=== PATIENT | female | born 1930 | race Caucasian/White ===

== ENCOUNTER 2018-09-25 16:33 | Inpatient (IN) | payer MEDICARE, BC ==
[~2018-09-25] VITALS: Ht 154.9 cm; Wt 90.7 kg
[2018-09-25] MEDS ORDERED: ARICEPT10 MG PO (16:40)
[2018-09-25] MEDS ORDERED: ASPIRIN 32325 MG/TAB PO (16:41)
[2018-09-25] MEDS ORDERED: LASIX 40MG TABL40 MG PO (16:41)
[2018-09-25] MEDS ORDERED: MIRALAX PA17 GM/Dose PO (16:42)
[2018-09-25] MEDS ORDERED: ZESTRIL 10MG10 MG PO (16:42)
[2018-09-25] MEDS ORDERED: MULTI VITAMINS1 TAB PO (16:43)
[2018-09-25] MEDS ORDERED: K-TAB20 PO (16:45)
[2018-09-25] MEDS ORDERED: ZOLOFT 50MG50 MG PO (16:46)
[2018-09-25 16:47] VITALS: BP 130/55; PULSE 81; TEMP 98.3
[2018-09-25] MEDS ORDERED: ZANTAC 150MG T150 MG PO (16:47)
[2018-09-25] MEDS ORDERED: TYLENOL 325MG325 MG PO (16:47)
[2018-09-25] MEDS ORDERED: ZYPREXA 5MG5 MG PO (16:49)
[2018-09-25] MEDS ORDERED: NAMENDA 10MG TA10 MG PO (16:49)
[2018-09-25] MEDS ORDERED: DULCOLAX STOOL100 MG PO (16:50)
[2018-09-25] MEDS ORDERED: SINEMET-25/251 UDTAB PO (16:51)
[2018-09-25] MEDS ORDERED: GENTLE LAXATIVE5 MG PO (16:53)
[2018-09-25] MEDS ORDERED: MILK OF MA400 MG/52 PO (16:53)
[2018-09-25] MEDS ORDERED: NORCO2.5 PO (16:54)
[2018-09-25] MEDS ORDERED: ZYPREXA2.5 MG PO (16:56)
--- NOTE | 2018-09-25 18:08 | NUR ---
Patient to room 345 report from [facility]. Ems brought patient to 345, she transfered to bed fairly well with slideboard. Patient family at bedside. Hospitalist rounded. Ku in ortho made aware of consult & patient arrival to the floor. Ivf started to L.hand per orders & morphine IV for pain, patient unable to rate her pain. Patient has underlying dementia-not able to answer questions. Her facial grimacing was indicative of pain and her family reported she appeared in pain. Her family assisted with inital assement questions, patient unable to answer. She had a farrell to DD started in rosser. Rue in sling that was also placed at rosser. Brusing noted to her arm. Scds ble. Patient refused ice to hip Rle elevated. Will report off to night nurse
[2018-09-25 18:17] LABS: MUCOUS Present /lpf; PH 5 (5-8); URINE APPEARANCE Cloudy; URINE BACTERIA Occasional /hpf; URINE BILIRUBIN Negative (NEGATIVE); URINE BLOOD 2+ (NEGATIVE); URINE COLOR Yellow; URINE GLUCOSE Negative (NEGATIVE); URINE KETONE Negative (NEGATIVE); URINE LEUKOCYTE ESTERASE 3+ (NEGATIVE); URINE NITRATE Negative (NEGATIVE); URINE PROTEIN(semi-quant) 1+ (NEGATIVE); URINE RBC >50 /hpf; URINE UROBILINOGEN Negative (NEGATIVE)
[2018-09-25 18:26] LABS: COLLECTION METHOD CLEAN CATCH
--- NOTE | 2018-09-25 18:36 | NUR ---
LUIS MARTINEZ MADE AWARE OF UA RESULTS & PATIENT NAUSEA, ORDERS OBTAINED.
[2018-09-25 19:09] VITALS: BP 137/50; PULSE 92; TEMP 98.1
--- NOTE | 2018-09-25 19:09 | NUR ---
Report received from Sarah EAGLE. Pt sitting with HOB elevated. Family at bedside. Pt denies pain. Pt given Zofran by Sarah previously which pt now denies nausea. Respirations even and unlabored. Lungs clear to auscultation. BS+. Abdomen soft, nontender. Compression stockings bilaterally with SCDS in place. Pedal pulses 2+. Patient is alert and partially oriented. Bed alarm set for safety. Pts L H IV site was leaking and infiltated during shift handoff. Site was discontinued by Sarah EAGLE. L H was wrapped in warm blanket. Pt has no IV site currently. [facility] to start new site due to pt having R arm sling and difficulty with IV starts historically. Will restart IVF once new site inserted. R arm is in sling. Significant brusing noted to R shoulder and arm. Candelaria catheter to dependent drainage- albert urine noted. Family states they are waiting for Orthopedic doctor to come and then will be going home for the night. Family history obtained. No further needs noted.
--- NOTE | 2018-09-25 19:50 | NUR ---
Family left for the night. Bed alarm set. No distress noted.
--- NOTE | 2018-09-25 20:30 | NUR ---
Orthopedics SHORTY [place] at bedside.
--- NOTE | 2018-09-25 21:20 | NUR ---
Radiology at bedside to complete XRs per orders.
[2018-09-26] VITALS (14 sets, daily range): BP systolic 102–142; BP diastolic 40–81; PULSE 66–96; TEMP 97.2–98.8
--- NOTE | 2018-09-26 00:45 | NUR ---
Pt sleeping. No distress noted. VSS except Spo2 90% on Room air. 1L O2 via NC applied and Spo2 increased to 96%. RT contacted.
--- NOTE | 2018-09-26 04:56 | NUR ---
Consult called to Anesthesia.
--- NOTE | 2018-09-26 06:17 | NUR ---
Pt resting this AM. Currently wearing O2@2L due to Spo2 dropping during sleep. Pt is has resting comfortably throughout the night. JORGE hose to unaffected extremity. SCDS bilaterally. ICE applied to R hip. No distress or needs noted this AM.
[2018-09-26 07:44] LABS: BASO % 0.3 % (0.0-2.0); EOS # 0.5 (0.0-0.7); GRAN % 64.8 % (42.2-75.2); HEMOGLOBIN 10.6 g/dl (12.5-16.0); LYMPH # 1.8 (1.2-3.4); LYMPH % 19.3 % (20.0-51.0); MEAN CELL VOLUME 100 fl (80.0-100.0); MEAN CORPUSCULAR HEMOGLOBIN 33 pg (27.0-31.0); MEAN CORPUSCULAR HGB CONC 33 g/dl (33.0-37.0); MEAN PLATELET VOLUME 10.1 fl (7.4-10.4); MONO % 10.3 % (1.7-9.3); PLATELET COUNT 220 K/mm3 (130-400); RED BLOOD COUNT 3.25 M/mm3 (4.10-5.30); REDCELL DISTRIBUTION WIDTH-CV 12.6 % (11.5-14.5)
[2018-09-26 07:45] LABS: INR 0.9 (0.8-3.0)
[2018-09-26 07:47] LABS: HEMATOCRIT 32.6 % (37.0-47.0)
[2018-09-26 07:52] LABS: ALBUMIN 3.1 gm/dL (3.5-5.0); BILIRUBIN,TOTAL 0.7 mg/dL (0.0-1.0); CALCIUM 8.2 mg/dL (8.4-10.2); CREATININE, serum 1.03 (0.52-1.25); POTASSIUM 4.3 mmol/L (3.4-5.0); TOTAL PROTEIN 6.5 gm/dL (6.4-8.2)
[2018-09-26 07:59] LABS: PRE ALBUMIN 19.2 mg/dL (17.6-36.0)
--- NOTE | 2018-09-26 09:10 | NUR ---
Patient alert, does not answer questions r/t dementia. See assessment. RLE with pulses palpable, shortened and externally rotated. RLE with ice pack and pillows for support. Family at bedside. No s/s pain at this time.
--- NOTE | 2018-09-26 09:26 | NUR ---
SW met with the patient, patient's daughter (Jeanna), and granddaughter (Caroline) to discuss discharge plan. The patient resides at [facility] in [place] for long-term care. The patient's daughter and granddaughter report that they would prefer for the patient to transfer to [facility] for rehab upon discharge. SW presented and explained the patient choice form to the patient's daughter. The patient's daughter preferred 1) [facility] 2) [facility]. Patient choice form signed by the patient's daughter and she was provided a copy. ARIELLE contacted and faxed a referral to Kita at [facility]. ARIELLE attempted to contact Jess at [facility]. ARIELLE left a voicemail. The patient does not have advanced directives in EMR, but the patient's daughter reports the patient does have them completed and that she and her siblings are the patient's DPOA-HC. SW awaiting the facilities screenings.
--- NOTE | 2018-09-26 11:17 | NUR ---
First visit from the admitted attorneys. No needs right now.
--- NOTE | 2018-09-26 11:55 | NUR ---
Kita, at [facility], reports that they will continue to follow the patient. Kita reports that they will need progress notes and to know post surgery plans before they can offically accept. SW to continue to update [facility] and will inform the patient's family and continue to follow.
--- NOTE | 2018-09-26 15:27 | NUR ---
Patient returns from PACU; right hip arthroplasty. Assessment unchanged except RLE with dressing clean, dry and intact. Pulses palpable to RLE, ice pack applied to hip area. Patient drowsy but opens eyes to verbal stimuli. No s/s pain noted at this time.
--- NOTE | 2018-09-26 21:00 | NUR ---
Patient awakens to name. Takes HS meds without problem at this time. Is alert oriented to self. Has IVF to right foot at 60cc/hr without redness or swelling. Old IV site to left forearm has bruising noted. Right arm in sling, fading bruising to right upper arm, has fracture of the rt humerus. Has aquacell to right hip, D/I. SCD to left leg with JORGE hose on. Denies pain at this time.
[2018-09-27] VITALS: BP 103/36; PULSE 104; TEMP 97.7
[2018-09-27 04:00] VITALS: BP 109/33; PULSE 94; TEMP 97.5
--- NOTE | 2018-09-27 04:20 | NUR ---
Repositioned in bed, patient moans with movement, quiets after resting. Ice pack replaced to right hip. Smear of BM noted, cleansed at this time. IVF to right foot continue without redness or swelling.
[2018-09-27 06:29] LABS: BASO % 0.3 % (0.0-2.0); EOS # 0.3 (0.0-0.7); EOS % 3.4 % (0-4.0); GRAN # 6.8 (1.4-6.5); HEMOGLOBIN 10.6 g/dl (12.5-16.0); LYMPH # 1.1 (1.2-3.4); LYMPH % 11.9 % (20.0-51.0); MEAN CELL VOLUME 102 fl (80.0-100.0); MEAN CORPUSCULAR HEMOGLOBIN 33 pg (27.0-31.0); MEAN CORPUSCULAR HGB CONC 33 g/dl (33.0-37.0); MEAN PLATELET VOLUME 10.5 fl (7.4-10.4); MONO # 1.1 (0.1-0.6); MONO % 11.7 % (1.7-9.3); PLATELET COUNT 231 K/mm3 (130-400); RED BLOOD COUNT 3.19 M/mm3 (4.10-5.30); REDCELL DISTRIBUTION WIDTH-CV 12.6 % (11.5-14.5)
[2018-09-27 06:31] LABS: HEMATOCRIT 32.4 % (37.0-47.0)
[2018-09-27 06:41] LABS: CALCIUM 8.1 mg/dL (8.4-10.2); CREATININE, serum 1.13 (0.52-1.25); POTASSIUM 4.4 mmol/L (3.4-5.0)
[2018-09-27 07:15] VITALS: BP 119/44; PULSE 90; TEMP 97.2
--- NOTE | 2018-09-27 08:50 | NUR ---
Patient in bed. Alert and oriented to self. Shift assessment complete. Aquacell to right hip is CDI. Pedal pulses intact. Right arm in sling, ecchymosis noted to arm. IV fluids infusing via pump per orders to right foot. Denies pain or further needs at this time.
--- NOTE | 2018-09-27 10:27 | NUR ---
Patient up to chair.
[2018-09-27 11:45] VITALS: BP 115/43; PULSE 107; TEMP 99
--- NOTE | 2018-09-27 14:09 | NUR ---
ARIELLE contacted and faxed updates to [facility] and [facility]. [facility] provided ARIELLE with another fax # to use. [phone]. ARIELLE to continue to follow.
--- NOTE | 2018-09-27 14:30 | NUR ---
Patient back to bed with PT, x1 assist.
[2018-09-27 15:33] VITALS: BP 94/71; PULSE 78; TEMP 98
--- NOTE | 2018-09-27 17:08 | NUR ---
Kita, at [facility], reports that they can accept the patient for a skilled stay. SW to inform the patient and patient's family and continue to follow.
--- NOTE | 2018-09-27 18:16 | NUR ---
Patient has rested well through the day. Alert and oriented to self. Up in recliner throughout the day. Candelaria maintained to dependent drainage with clear yellow urine in bag. No facial grimacing or indications of pain at this time. Will report off to pill machine operator.
--- NOTE | 2018-09-27 20:26 | NUR ---
Patient in bed, is alert to self. Has no IV site, IM Rocephin 1GM given at this time in left VG. Takes HS meds including [place] 5/325mg for pain to right leg when moved. Was reported by family, patient ate 100% of her supper and drank well. Candelaria catheter care provided at this time, urine yellow. Dressing to right hip D/I. Has sling to right arm, secured with swath around waist, has Fx of the right Humerus, old bruising noted to upper arm, patient able to squeeze this nurses hand when asked. Bed alarm on. Wearing oxygen at 2L/nc.
[2018-09-27 23:16] VITALS: BP 114/43; PULSE 97; TEMP 98.7
--- NOTE | 2018-09-28 01:50 | NUR ---
Woody 5/325mg 2 tabs given for pain, grimacing and restlessness.
[2018-09-28 04:30] VITALS: BP 97/43; PULSE 87; TEMP 99.3
--- NOTE | 2018-09-28 06:00 | NUR ---
Patient given laieny care for incontinent stool. Repositioned easily with minimal moaning.
[2018-09-28 06:20] LABS: BASO % 0.3 % (0.0-2.0); EOS # 0.6 (0.0-0.7); EOS % 5.6 % (0-4.0); GRAN # 6.7 (1.4-6.5); GRAN % 62.1 % (42.2-75.2); LYMPH # 1.9 (1.2-3.4); LYMPH % 17.8 % (20.0-51.0); MEAN CELL VOLUME 101 fl (80.0-100.0); MEAN CORPUSCULAR HGB CONC 32 g/dl (33.0-37.0); MEAN PLATELET VOLUME 10.6 fl (7.4-10.4); MONO # 1.4 (0.1-0.6); PLATELET COUNT 216 K/mm3 (130-400); RED BLOOD COUNT 2.66 M/mm3 (4.10-5.30); REDCELL DISTRIBUTION WIDTH-CV 12.6 % (11.5-14.5)
[2018-09-28 06:22] LABS: HEMATOCRIT 26.9 % (37.0-47.0); HEMOGLOBIN 8.7 g/dl (12.5-16.0); MEAN CORPUSCULAR HEMOGLOBIN 33 pg (27.0-31.0)
[2018-09-28 06:59] LABS: CALCIUM 7.8 mg/dL (8.4-10.2); CREATININE, serum 1.31 (0.52-1.25); POTASSIUM 4.7 mmol/L (3.4-5.0)
[2018-09-28 07:36] VITALS: BP 138/78; PULSE 87; TEMP 97.9
--- NOTE | 2018-09-28 08:00 | NUR ---
Patient in bed resting. Arouses to name and touch. Shift assessment complete. Aquacell to right hip is CDI. Right arm in sling. Candelaria to dependent drainage with clear yellow urine present in bag. Bed bath provided, linens changed. Smear of BM noted. Pain medications given for pain, facial grimmacing and crying. Assisted patient to eat breakfast. Needs encouragement to eat.
--- NOTE | 2018-09-28 09:22 | NUR ---
Notified hospitalist, patient was given 2 tabs of norco this AM. Patient in bed crying, grandson at bedside would like to know if we are able to give her something else for pain. No IV access at this time. Fracisco, house superviser had attempted placement last night x1 without success, grand daughter did not want to house superviser to attempt placement a second time.
--- NOTE | 2018-09-28 11:00 | NUR ---
Doraia here to initiate IV
--- NOTE | 2018-09-28 12:00 | NUR ---
Regan here to initiate IV.
--- NOTE | 2018-09-28 12:30 | NUR ---
Patient continues to cry and states pain, medications given per orders.
[2018-09-28 12:58] VITALS: BP 130/50; PULSE 95; TEMP 98.2
--- NOTE | 2018-09-28 15:35 | NUR ---
SW contacted and faxed updates to Kita at [facility].
[2018-09-28 16:00] VITALS: BP 131/51; PULSE 94; TEMP 98.2
--- NOTE | 2018-09-28 19:02 | NUR ---
Patient has remained in bed throughout the day, repositioned every 2 hours for comfort. Medications given per orders. Fluids infusing per orders to left AC IV. Grand daughter in room assisting patient to eat supper. Denies further needs at this time. Reported off to assistant casino shift manager.
[2018-09-28 19:13] VITALS: BP 140/58; PULSE 100; TEMP 98.6
--- NOTE | 2018-09-28 20:00 | NUR ---
Patient in bed, oriented to self, speech garbled. Has right arm in swath/sling d/t fractured rt humerus, fading bruising noted with edema to wrist, has good CSM of right hand. Has repaired rt hip fracture, Dimas liu D/I, ice pack in place. Candelaria to BSD, cath care given at this time. SCD's and JORGE hose on bilateral lower extremities. Takes HS meds without problem. IVF infusing to left AC without redness or swelling.
--- NOTE | 2018-09-28 23:34 | NUR ---
PATIENT MOANING, MEDICATED WITH NORCO 2 TABS PO AT THIS TIME.
[2018-09-28 23:38] VITALS: BP 132/51; PULSE 90; TEMP 97.4
--- NOTE | 2018-09-29 00:50 | NUR ---
Patient continues to moan and mumble, repositioned in bed after lainey care given for small inc. BM. Quiets after repositioning.
[2018-09-29 04:02] VITALS: BP 120/44; PULSE 85; TEMP 98
--- NOTE | 2018-09-29 06:00 | NUR ---
Patient slept well after Morphine IV at 0225. IVF continue to left AC without redness or swelling.
[2018-09-29 06:09] LABS: BASO % 0.2 % (0.0-2.0); EOS # 0.5 (0.0-0.7); EOS % 4.3 % (0-4.0); GRAN # 7.2 (1.4-6.5); GRAN % 66.7 % (42.2-75.2); LYMPH # 1.9 (1.2-3.4); LYMPH % 17.5 % (20.0-51.0); MEAN CELL VOLUME 102 fl (80.0-100.0); MEAN CORPUSCULAR HGB CONC 32 g/dl (33.0-37.0); MONO # 1.1 (0.1-0.6); MONO % 9.7 % (1.7-9.3); PLATELET COUNT 226 K/mm3 (130-400); RED BLOOD COUNT 2.69 M/mm3 (4.10-5.30); REDCELL DISTRIBUTION WIDTH-CV 12.4 % (11.5-14.5)
[2018-09-29 06:18] LABS: CALCIUM 8.2 mg/dL (8.4-10.2); CREATININE, serum 1.12 (0.52-1.25); POTASSIUM 4.3 mmol/L (3.4-5.0)
[2018-09-29 06:35] LABS: HEMATOCRIT 27.3 % (37.0-47.0); HEMOGLOBIN 8.8 g/dl (12.5-16.0); MEAN CORPUSCULAR HEMOGLOBIN 33 pg (27.0-31.0)
[2018-09-29 08:45] VITALS: BP 125/63; PULSE 100; TEMP 98.3
--- NOTE | 2018-09-29 09:30 | NUR ---
Patient alert, speech confused. See assessment. RLE incision with aquacel CDI. Pulses palpable to RLE, neuros intact. RUE with sling in place, pulses palpable, neuros intact. No s/s pain or discomfort at this time.
[2018-09-29] MEDS ORDERED: NORCO 325 MG-51 TAB PO (10:28)
[2018-09-29] MEDS ORDERED: VITAMIN C500 MG PO (10:30)
[2018-09-29] MEDS ORDERED: OSCAL 500 TAB500 MG PO (10:30)
[2018-09-29 11:56] VITALS: BP 104/49; PULSE 85; TEMP 98.1
[2018-09-29] MEDS ORDERED: ASPIRIN 32325 MG/TAB PO (11:58)
--- NOTE | 2018-09-29 14:19 | NUR ---
ARIELLE contacted and faxed updates to Kita at [facility]. The patient is to tentatively discharge tomorrow, 09/30. Kita requests updates in the morning and for her labs (CMP) to see her kidney fuctioning. ARIELLE attempted to update Jess at [facility]. ARIELLE left a voicemail. ARIELLE to continue to follow.
[2018-09-29 15:56] VITALS: BP 136/53; PULSE 95; TEMP 98.5
[2018-09-29 20:04] VITALS: BP 121/49; PULSE 83; TEMP 98
--- NOTE | 2018-09-29 22:55 | NUR ---
Spoke with patient's daughter and she would like to speak with Social work tomorrow about the possibility of Hospice for the patient. Patient occasionally will answer questions with yes/no answers. Patient incontinent and cares provided. Bottom appears a little red d/t moisture. Repositioning q2 hours completed. Patient called out and noted to have high respirations and appeared anxious. Her words are repetative, but I was able to orient her to where she was, and this seemed to calm her. Patient assured she would be going to [facility] tomorrow. Appears to be more calm. Will continue to monitor.
[2018-09-29 23:05] VITALS: BP 144/53; PULSE 106; TEMP 99
[2018-09-30 03:05] VITALS: BP 100/40; PULSE 94; TEMP 98.1
--- NOTE | 2018-09-30 06:59 | NUR ---
Report given to SHAGUFTA Perez.
[2018-09-30 08:42] VITALS: BP 134/50; PULSE 109; TEMP 98.9
[2018-09-30 09:39] LABS: ALBUMIN 2.7 gm/dL (3.5-5.0); BILIRUBIN,TOTAL 0.4 mg/dL (0.0-1.0); CREATININE, serum 1.04 (0.52-1.25)
[2018-09-30] MEDS ORDERED: TYLENOL 325MG325 MG PO ×2 (10:41→10:52)
--- NOTE | 2018-09-30 11:04 | NUR ---
SW made aware of possible DC. SW sent requested info of labs, notes for 48 hours, and a update. Awaiting DC orders. Will fax and setup transport.
--- NOTE | 2018-09-30 11:53 | NUR ---
FAXED DC orders awaiting transport time
[2018-09-30 12:10] VITALS: BP 134/50; PULSE 109; TEMP 98.9
--- NOTE | 2018-09-30 12:45 | NUR ---
Patient is discharging back to [facility]. The nurse who will be taking care of her and admitting her was here, report given to her at this time. INT discontinued. Info packed sent with the contract driver. All belongings packed up and sent with patient.
== END 2018-09-30 13:00 | DRG 470 ==
LOC: SURG 16:33
PROVIDERS: Orthopaedic Surgery Sports Medicine; Physician Assistant; ADMIT Internal Medicine
PROC: 0SRR0JA Replacement of Right Hip Joint, Femoral Surface with Synthetic Substitute, Uncemented, Open Approach (ICD-10-PCS; principal; 2018-09-26 13:00)
DX: S72.011A Unspecified intracapsular fracture of right femur, initial encounter for closed fracture (principal); N39.0 Urinary tract infection, site not specified; N17.9 Acute kidney failure, unspecified; W07.XXXA Fall from chair, initial encounter; G20 Parkinson's disease; F02.80 Dementia in other diseases classified elsewhere, unspecified severity, without behavioral disturbance, psychotic disturbance, mood disturbance, and anxiety; I10 Essential (primary) hypertension; Z85.3 Personal history of malignant neoplasm of breast; Z86.718 Personal history of other venous thrombosis and embolism; Z66 Do not resuscitate; S42.201D Unspecified fracture of upper end of right humerus, subsequent encounter for fracture with routine healing; B96.20 Unspecified Escherichia coli [E. coli] as the cause of diseases classified elsewhere; D64.9 Anemia, unspecified
CPT/HCPCS: 99222-AI; 99231-AI; 99232-AI; 99239; A4216; A9284; C1776; J0690; J0696; J2270; J2405; J2704; J2795; J3010; J7030

== ENCOUNTER → 2019-09-14 | Outpatient (CLI) | payer MEDICARE, BC ==
[~2019-09-14] MED LIST: ARICEPT10 MG PO; ASPIRIN 32325 MG/TAB PO; DULCOLAX STOOL100 MG PO; GENTLE LAXATIVE5 MG PO; K-TAB20 PO; LASIX 40MG TABL40 MG PO; MILK OF MA400 MG/52 PO; MIRALAX PA17 GM/Dose PO; MULTI VITAMINS1 TAB PO; NAMENDA 10MG TA10 MG PO; NORCO 325 MG-51 TAB PO; NORCO2.5 PO; OSCAL 500 TAB500 MG PO; SINEMET-25/251 UDTAB PO; TYLENOL 325MG325 MG PO; VITAMIN C500 MG PO; ZANTAC 150MG T150 MG PO; ZESTRIL 10MG10 MG PO; ZOLOFT 50MG50 MG PO; ZYPREXA 5MG5 MG PO; ZYPREXA2.5 MG PO
[2019-09-14 17:00] LABS: BASO % 0.2 % (0.0-2.0); EOS % 0.1 % (0-4.0); GRAN # 16.7 (1.4-6.5); HEMATOCRIT 38.4 % (37.0-47.0); LYMPH # 1.2 (1.2-3.4); LYMPH % 6.1 % (20.0-51.0); MEAN CELL VOLUME 101 fl (80.0-100.0); MEAN CORPUSCULAR HEMOGLOBIN 32 pg (27.0-31.0); MEAN CORPUSCULAR HGB CONC 31 g/dl (33.0-37.0); MEAN PLATELET VOLUME 11.8 fl (7.4-10.4); MONO % 5.3 % (1.7-9.3); PLATELET COUNT 232 K/mm3 (130-400); REDCELL DISTRIBUTION WIDTH-CV 12.8 % (11.5-14.5)
[2019-09-14 17:22] LABS: BILIRUBIN,TOTAL 0.6 mg/dL (0.0-1.0); CALCIUM 9.3 mg/dL (8.4-10.2); CREATININE, serum 2.57 (0.52-1.25); POTASSIUM 4.6 mmol/L (3.4-5.0); TOTAL PROTEIN 7.6 gm/dL (6.4-8.2)
== END ==
LOC: ZCOL.LAB 16:06
PROVIDERS: Nurse Practitioner Family
DX: R11.2 Nausea with vomiting, unspecified (principal)

== ENCOUNTER → 2019-10-16 | Outpatient (CLI) | payer MEDICARE, BC | LOC: ZCOL.LAB 13:13 | DX: K92.2 Gastrointestinal hemorrhage, unspecified (principal) ==

== ENCOUNTER → 2019-11-12 | Outpatient (CLI) | payer MEDICARE, BC | LOC: ZCOL.LAB 14:22 | DX: R50.81 Fever presenting with conditions classified elsewhere (principal); Z20.828 Contact with and (suspected) exposure to other viral communicable diseases ==